=== PATIENT | female | born 1990 | race Caucasian/White ===

== ENCOUNTER 2017-06-13 10:33 | Observation (INO) | payer BC ==
[~2017-06-13] VITALS: Ht 157.6 cm; Wt 53.1 kg
[2017-06-13 11:23] LABS: BASO # 0.1 (0.0-0.2); EOS # 0.6 (0.0-0.7); EOS % 8.7 % (0-4.0); GRAN # 3.4 (1.4-6.5); GRAN % 48.1 % (42.2-75.2); HEMATOCRIT 36.3 % (37.0-47.0); HEMOGLOBIN 12.3 g/dl (12.5-16.0); LYMPH # 2.6 (1.2-3.4); MEAN CELL VOLUME 91 fl (80.0-100.0); MEAN CORPUSCULAR HEMOGLOBIN 31 pg (27.0-31.0); MEAN CORPUSCULAR HGB CONC 34 g/dl (33.0-37.0); MEAN PLATELET VOLUME 11.5 fl (7.4-10.4); MONO # 0.4 (0.1-0.6); MONO % 5.1 % (1.7-9.3); PLATELET COUNT 206 K/mm3 (130-400)
[2017-06-13] MEDS ORDERED: TRINESSA 281 TAB PO (11:31)
[2017-06-13 11:36] LABS: ALBUMIN 3.8 gm/dL (3.5-5.0); BILIRUBIN,TOTAL 0.3 mg/dL (0.0-1.0); C-REACTIVE PROTEIN 0.6 mg/dL (0.0-0.9); CALCIUM 8.8 mg/dL (8.4-10.2); CREATININE, serum 0.67 mg/dL (0.52-1.25); POTASSIUM 3.4 mmol/L (3.4-5.0); TOTAL PROTEIN 7.1 gm/dL (6.4-8.2)
[2017-06-13 12:03] LABS: COLLECTION METHOD CLEAN CATCH
[2017-06-13 12:11] LABS: MUCOUS Present /lpf; PH 8 (5-8); URINE APPEARANCE Clear; URINE BACTERIA None Seen /hpf; URINE BILIRUBIN Positive (NEGATIVE); URINE BLOOD Negative (NEGATIVE); URINE COLOR Yellow; URINE GLUCOSE Negative (NEGATIVE); URINE KETONE Negative (NEGATIVE); URINE LEUKOCYTE ESTERASE Negative (NEGATIVE); URINE PROTEIN(semi-quant) 2+ (NEGATIVE); URINE RBC 0-2 /hpf; URINE UROBILINOGEN Negative (NEGATIVE)
[2017-06-13 14:13] VITALS: BP 102/62; PULSE 89; TEMP 97.9
[2017-06-13 17:42] VITALS: BP 96/50; PULSE 95; TEMP 98.8
[2017-06-13 22:09] VITALS: BP 87/43; PULSE 86; TEMP 99.8
[2017-06-14] VITALS (12 sets, daily range): BP systolic 89–126; BP diastolic 33–92; PULSE 77–106; TEMP 97.7–98.5
[2017-06-14 07:22] LABS: ADJUSTED CALCIUM 8.7 mg/dL (8.4-10.2); ALBUMIN 2.6 gm/dL (3.5-5.0); BILIRUBIN,TOTAL 0.3 mg/dL (0.0-1.0); CALCIUM 7.6 mg/dL (8.4-10.2); CREATININE, serum 0.62 mg/dL (0.52-1.25); POTASSIUM 3.4 mmol/L (3.4-5.0); TOTAL PROTEIN 5.1 gm/dL (6.4-8.2)
== END 2017-06-14 23:27 | disposition home or self-care (01) ==
LOC: COL.ER 10:33 → SURG 12:47
PROVIDERS: Emergency Medicine; Surgery
DX: K80.00 Calculus of gallbladder with acute cholecystitis without obstruction (principal); R91.1 Solitary pulmonary nodule
CPT/HCPCS: G0378; J1100; J1170; J1885; J1956; J2405; J2550; J2704; J7030; J7050; Q9967